=== PATIENT | male | born 1930 | race African-American/Black ===

== ENCOUNTER 2019-08-27 11:58 | Emergency (ER) | payer MEDICAID, MEDICARE ==
[~2019-08-27] VITALS: Ht 193 cm; Wt 85.7 kg
[2019-08-27 12:11] VITALS: BP 192/96
[2019-08-27 12:16] VITALS: BP 192/96
[2019-08-27] MEDS ORDERED: LIDOCAINE 1% VIAL ONE (12:16)
--- NOTE | 2019-08-27 12:18 | NUR ---
ARRIVAL PATIENT ARRIVED TO ED3 VIA RNEY BY [facility], PATIENT SENT FROM [facility] FOR A FALL TODAY, STAFF STATES PATIENT WAS SITTING OUTSIDE WHEN ANOTHER RESIDENT FELL ON HIM CAUSING HIM TO FALL FROM HIS CHAIR, C/O OF LEFT SHOULDER AND KNEE PAIN,LACERATION NOTED TO THE LEFT HAND, ABRASION TO THE LEFT SIDE OF HEAD, DENIES LOC, WAS ABLE TO STAND FROM THE GURNEY AND GET TO THE BED WITH ASSISTANCE. WAS SENT TO THE ED FOR EVAL BY EDP. 20G TO THE LEFT FOREARM SALINE LOCKED, DOCTOR NICOLE TO ROOM TO SEE PATIENT. NO DISTRESS NOTED.
--- NOTE | 2019-08-27 12:24 | NUR ---
XRAY XRAY TO ROOM
[2019-08-27] MEDS ORDERED: ADACEL VIAL IM ONE ×2 (12:30→12:57)
--- NOTE | 2019-08-27 13:04 | DIREP ---
PROCEDURE:XRAY SHOULDER MIN 2 VWS-LT COMPARISON:[facility], CR, XRAY HIP MIN 2VW-LT, 08/27/2019, 12:05 PM. [facility], CR, XRAY KNEE 3 VIEWS-LT, 08/27/2019, 12:05 PM. INDICATIONS:fall FINDINGS: BONES:No fracture. JOINTS:No dislocation or acromioclavicular separation. Mild glenohumeral and acromioclavicular arthrosis. SOFT TISSUES:Unremarkable. OTHER:Visualized portions the lungs are clear. Mild calcified plaque in the thoracic aorta. CONCLUSION: 1. No acute abnormality involving the left shoulder. 2. Mild acromioclavicular and glenohumeral arthrosis. Dictated by: Mele Coombs MD on 08/27/2019 at 01:02 PM
--- NOTE | 2019-08-27 13:06 | DIREP ---
PROCEDURE:XRAY HIP MIN 2VW-LT COMPARISON:[facility], CR, XRAY KNEE 3 VIEWS-LT, 08/27/2019, 12:[address] [facility], CR, XRAY SHOULDER MIN 2 VWS-LT, 08/27/2019, 12:05 PM. INDICATIONS:fall FINDINGS: Frontal view of the pelvis and two views of the left hip are provided. BONES:No visible fracture. JOINTS:No dislocation. Mild degenerative changes involving the bilateral sacroiliac joints and bilateral hips. Lower lumbar disc and facet degenerative changes are partially visualized. SOFT TISSUES:Vascular calcifications. Otherwise unremarkable. OTHER:No additional findings. CONCLUSION: 1. No acute abnormality involving the pelvis or left hip. 2. 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 Dictated by: Mele Coombs MD on 08/27/2019 at 01:03 PM
--- NOTE | 2019-08-27 13:07 | DIREP ---
PROCEDURE:XRAY KNEE 3 VIEWS-LT COMPARISON:[facility], CR, XRAY SHOULDER MIN 2 VWS-LT, 08/27/2019, 12:[address] [facility], CR, XRAY HIP MIN 2VW-LT, 08/27/2019, 12:05 PM. INDICATIONS:fall FINDINGS: BONES:Mild osteopenia. No fracture. Tiny tricompartmental osteophytes. Small enthesophytes from the patella and anterior tibial tubercle. JOINTS:No dislocation. No joint effusion. Mild medial and patellofemoral compartmental narrowing. SOFT TISSUES:Vascular calcifications. Otherwise unremarkable. OTHER:No additional findings. CONCLUSION: 1. No acute abnormality involving the left knee. 2. Mild left knee arthrosis. Dictated by: Mele Coombs MD on 08/27/2019 at 01:05 PM
[2019-08-27] MEDS ORDERED: TRIPLE ANTIBIOTIC OINTMENT TP ONE (13:23)
--- NOTE | 2019-08-27 14:02 | ER.PDOC ---
General Chief Complaint: Extremities Stated Complaint: FALL Time seen by MD: 14:00 Source: patient, EMS History of Present Illness Occurred: just prior to arrival Where: [facility] Severity: mild Injuries/Pain Location: upper extremity, back, lower extremity Context: Other Loss of Consciousness: No Loss of Consciousness Modifying Factors: improves with immobilization, improves with pain medication, improves with rest Associated Symptoms: denies symptoms Allergies: Coded Allergies: No Known Allergies (Unverified , 08/27/19) Past Medical History Medical History: congestive heart failure, high cholesterol, other Surgical History: other Social History Alcohol Use: none Drug Use: none Reviewed Nursing Reviewed: Vital Signs, Abn. Noted Review of Systems All Other Systems: Reviewed and Negative [place] Coma Score [place] Total: 15 ED LACERATION WOUND REPAIR Wound Length (cm): 5 Wound cleaned: betadine Anesthesia type: local Anesthesia: 1% Lidocaine Wound's Depth, Shape: linear, subcutaneous Wound Explored: foreign body removed Tendon Intact: Yes Wound Debrided: minimal Suture Size/Type: 5:0, prolene Suture Style: simple Number of Sutures: 4 Results/Orders Results/Orders Orders - ANNETTE RIVERA MD Xr Shoulder Lt 2v (08/27/19 12:11) Xr Hip Lt 2v W/Pelvis (08/27/19 12:11) Xr Knee Lt 3v (08/27/19 12:11) Diph,Pertuss(Acell),Tet Vac/Pf (Adacel V (08/27/19 12:30) Lidocaine Hcl (Lidocaine 1% Vial) (08/27/19 12:16) Diph,Pertuss(Acell),Tet Vac/Pf (Adacel V (08/27/19 12:57) Neomycin/Bacitracin/Polymyxinb (Triple A (08/27/19 13:23) Vital Signs Date Time Temp Pulse Resp B/P (MAP) Pulse Ox O2 Delivery O2 Flow Rate FiO2 08/27/19 12:16 98.6 63 18 192/96 (128) 98 Room Air 08/27/19 12:11 98.6 63 18 08/27/19 12:11 98.6 63 18 98 08/27/19 12:11 98.6 63 18 192/96 (128) 98 Room Air Administered Medications Medications (Trade) Dose Ordered Sig/[place] Route PRN Reason Start Time Stop Time Status Last Admin Dose Admin Diphtheria/ Tetanus/Acell Pertussis (Adacel Vial) 0.5 ml ONCE ONCE IM 08/27/19 12:30 08/27/19 12:32 DC 08/27/19 13:01 0.5 ML Departure Time of Disposition: 14:22 Disposition: 01 HOME, SELF-CARE Impression: Primary Impression: Laceration of hand Condition: Improved Referrals: PCP,UNKNOWN (PCP) PRIMARY CARE PROVIDER Duration or Time Spent with Pa: 20 M ANNETTE RIVERA MD Aug 27, 2019 14:02
--- NOTE | 2019-08-27 14:15 | NUR ---
[facility] NOTIFIED OF PATIENT DISCHARGE, WILL SEND SOMEONE TO [facility] SPECIALIST PATIENT.
[2019-08-27 14:16] VITALS: BP 188/97
--- NOTE | 2019-08-27 14:19 | NUR ---
DRESSING DRESSING APPLIED TO PATIENT'S LEFT HAND BY BETH ORTEGA RN, PATIENT TOLERATED WELL.
== END 2019-08-27 14:00 | disposition home or self-care (01) ==
LOC: EDBD 11:58 → ER 11:58
DX: S61.422A Laceration with foreign body of left hand, initial encounter (principal); I50.9 Heart failure, unspecified; E78.00 Pure hypercholesterolemia, unspecified; S00.81XA Abrasion of other part of head, initial encounter; W19.XXXA Unspecified fall, initial encounter; Y93.89 Activity, other specified; Y92.128 Other place in nursing home as the place of occurrence of the external cause; Y99.8 Other external cause status
CPT/HCPCS: 12042; 73030; 73502; 73562; 90471; 90715; 99284; J2001